=== PATIENT | female | born 1945 | race Caucasian/White ===

== ENCOUNTER 2017-04-16 09:45 | Inpatient (IN) | payer MEDICARE ==
[~2017-04-16] VITALS: Ht 160 cm; Wt 86.4 kg
[~2017-04-16 09:45] MED LIST: BUPR300T54 PO; DOCU100C40 PO; DULO-31 PO; FLUT16SP2 NS; GABA-338 PO; LORA0.5T PO; NOR5T PO; OMEP20TA5 PO; ONDA4TAB6 PO; POTA20TA84 PO; PREVCR VG; SYN0.0125T PO; TRIA1CAP6 PO
[2017-04-16] MEDS ORDERED: pantoprazole 40 MG vial IV ONE (10:45)
[2017-04-16] MEDS ORDERED: normal saline 1000ML IV soln IVB ONE (10:45)
[2017-04-16] MEDS ORDERED: normal saline 1000ml 1,000 ML IV ONE (10:45)
[2017-04-16] MEDS ORDERED: ondansetron/PF 4mg/2ml inj IV ONE (10:45)
[2017-04-16 11:21] LABS: BASOPHILS % (AUTO) 0.1 % (0-1); EOSINOPHILS % (AUTO) 0.3 % (0-6); HEMATOCRIT 41.5 % (35.0-45.0); HEMOGLOBIN 14.4 g/dl (12.0-16.0); LYMPHOCYTES # (AUTO) 0.9 X10'3 (1.1-4.8); LYMPHOCYTES % (AUTO) 6.8 % (21-51); MEAN CORPUSCULAR HEMOGLOBIN 31.2 PG (27.0-31.0); MEAN CORPUSCULAR HGB CONC 34.8 % (33.0-36.5); MEAN CORPUSCULAR VOLUME 89.7 FL (78-98); MEAN PLATELET VOLUME 9.8 FL (7.4-10.4); MONOCYTES # (AUTO) 0.4 X10'3 (0-0.9); MONOCYTES % (AUTO) 2.9 % (2-12); NEUTROPHILS % (AUTO) 89.9 % (42-75); PLATELET COUNT 174 X10'3 (140-440); RED BLOOD COUNT 4.62 X10'6 (4.20-5.60); RED CELL DISTRIBUTION WIDTH 13.8 % (11.5-14.5); WHITE BLOOD COUNT 13.4 X10'3 (4.5-11.0)
[2017-04-16 11:31] LABS: INR 0.9 INR; PARTIAL THROMBOPLASTIN TIME 26 SECONDS (22-32); PROTHROMBIN TIME 9.7 SECONDS (9.0-12.0)
[2017-04-16 11:35] LABS: ALANINE AMINOTRANSFERASE 32 U/L (12-78); ALBUMIN 3.7 G/DL (3.4-5.0); ALBUMIN/GLOBULIN RATIO 1.1 (1.1-1.5); ALKALINE PHOSPHATASE 84 IU/L (46-116); ANION GAP 9 (8-16); ASPARTATE AMINO TRANSFERASE 26 U/L (10-37); BILIRUBIN,TOTAL 0.3 MG/DL (0.1-1.0); BLOOD UREA NITROGEN 31 MG/DL (7-18); CALCIUM 9.2 MG/DL (8.5-10.1); CHLORIDE 97 MMOL/L (99-107); CREATININE 1.35 MG/DL (0.40-0.90); ETHANOL < 0.010 GM/DL (0.0-0.010); GLUCOSE 106 MG/DL (70-104); LIPASE 65 U/L (73-393); MAGNESIUM 2.1 MG/DL (1.5-2.4); SODIUM 135 MMOL/L (135-145); TOTAL CARBON DIOXIDE 29.1 MMOL/L (24-32); eGFR 39 ML/MIN
[2017-04-16] MEDS ORDERED: magnesium 2GM in 50ml NS 50 ML IV PRN (12:40)
[2017-04-16] MEDS ORDERED: magnesium 4gm in 100ml NS 100 ML IV PRN (12:40)
[2017-04-16] MEDS ORDERED: bisacodyl 10mg suppository rectal RC PRN (12:40)
[2017-04-16] MEDS ORDERED: magnesium hydroxide 30ml (MOM) UD suspension PO PRN (12:40)
[2017-04-16] MEDS ORDERED: acetaminophen 325mg tablet PO PRN (12:40)
[2017-04-16] MEDS ORDERED: HYDROmorphone inj. 0.5 MG/0.5 ML DISP.SYRIN IV PRN ×2 (12:40)
[2017-04-16] MEDS ORDERED: mag hydrox/Alum hydrox/simeth 30ml oral suspension PO PRN (12:40)
[2017-04-16] MEDS ORDERED: HYDROcodone/acetaminophen 10/325mg tab PO PRN (12:40)
[2017-04-16] MEDS ORDERED: magnesium Cl slow-release 64mg tablet PO PRN (12:40)
[2017-04-16] MEDS ORDERED: potassium Cl 20 mEq SR tablet PO PRN (12:40)
[2017-04-16] MEDS ORDERED: HYDROcodone/acetaminophen 5mg/325mg tablet PO PRN (12:40)
[2017-04-16] MEDS ORDERED: potassium Cl 40MEQ/NS 500ml 500 ML IV PRN ×2 (12:40)
[2017-04-16] MEDS ORDERED: hydrALAZINE 20mg/ml inj. IV PRN (12:50)
[2017-04-16] MEDS: potassium Cl 20 mEq SR tablet PO SCH ×2 (13:00→20:56)
[2017-04-16] MEDS: gabapentin 300mg capsule PO SCH ×2 (13:00→20:55)
[2017-04-16 13:12] LABS: CLARITY,URINE Clear (Clear); COLOR,URINE Yellow (Yellow); GLUCOSE, URINE Negative (Neg); KETONES,URINE Negative (Neg); LEUKOCYTE ESTERASE ,URINE Negative (Neg); NITRITES, URINE Negative (Neg); OCCULT BLOOD,URINE Negative (Neg); PROTEIN,URINE Negative (Neg); UROBILINOGEN,URINE 0.2 E.U/dL (0.2-1.0)
[2017-04-16 13:17] LABS: UA COLLECTION TYPE NON-SPECIFIED
[2017-04-16] MEDS: sodium chloride 0.45% 1,000 ML IV SCH ×2 (13:24→20:56)
[2017-04-16] MEDS: metroNIDAZOLE-Flagyl 500mg/NS 100 ML IV SCH ×3 (13:33→17:36)
[2017-04-16 14:24] LABS: OCCULT BLOOD STOOL POSITIVE (Neg)
[2017-04-16] MEDS ORDERED: HYDROmorphone/NS 1 mg/ml CADD 50 ML IV SCH (14:45)
[2017-04-16] MEDS ORDERED: CADD PCA waste documentation MC SCH (14:50)
[2017-04-16] MEDS ORDERED: naloxone 0.4 mg/ml inj IV PRN (14:50)
[2017-04-16 15:03] LABS: BASOPHILS % (AUTO) 0.1 % (0-1); EOSINOPHILS # (AUTO) 0.2 X10'3 (0-0.9); EOSINOPHILS % (AUTO) 1.6 % (0-6); HEMATOCRIT 37.7 % (35.0-45.0); HEMOGLOBIN 13.1 g/dl (12.0-16.0); LYMPHOCYTES # (AUTO) 1.2 X10'3 (1.1-4.8); LYMPHOCYTES % (AUTO) 8.6 % (21-51); MEAN CORPUSCULAR HEMOGLOBIN 31.2 PG (27.0-31.0); MEAN CORPUSCULAR HGB CONC 34.8 % (33.0-36.5); MEAN CORPUSCULAR VOLUME 89.5 FL (78-98); MEAN PLATELET VOLUME 9.9 FL (7.4-10.4); MONOCYTES # (AUTO) 0.6 X10'3 (0-0.9); NEUTROPHILS # (AUTO) 11.7 X10'3 (1.8-7.7); NEUTROPHILS % (AUTO) 85.7 % (42-75); PLATELET COUNT 179 X10'3 (140-440); RED BLOOD COUNT 4.21 X10'6 (4.20-5.60); RED CELL DISTRIBUTION WIDTH 14.1 % (11.5-14.5); WHITE BLOOD COUNT 13.7 X10'3 (4.5-11.0)
[2017-04-16] MEDS: aztreonam inj. 1,000 MG in normal saline 100ml IV soln 100 ML IV SCH ×2 (15:15→20:56)
[2017-04-16] MEDS: HYDROmorphone/NS 1 mg/ml CADD 50 ML IV SCH ×4 (16:00→21:00)
[2017-04-16] MEDS: pantoprazole 40MG/NS 100ML BAG 100 ML IV SCH ×2 (17:24→20:56)
[2017-04-16 20:00] VITALS: BP 143/77
[2017-04-16 20:55] VITALS: BP_SYST 136; BP_SYST 142; BP_SYST 143; BP_DIAS 68; BP_DIAS 77; BP_DIAS 78
[2017-04-16] MEDS ORDERED: HYDROmorphone 2mg tablet PO PRN (21:55)
[2017-04-16 22:08] LABS: BASOPHILS % (AUTO) 0.1 % (0-1); EOSINOPHILS # (AUTO) 0.1 X10'3 (0-0.9); EOSINOPHILS % (AUTO) 0.7 % (0-6); HEMATOCRIT 38.5 % (35.0-45.0); HEMOGLOBIN 13.2 g/dl (12.0-16.0); LYMPHOCYTES # (AUTO) 1.2 X10'3 (1.1-4.8); LYMPHOCYTES % (AUTO) 9.9 % (21-51); MEAN CORPUSCULAR HEMOGLOBIN 31.1 PG (27.0-31.0); MEAN CORPUSCULAR HGB CONC 34.3 % (33.0-36.5); MEAN CORPUSCULAR VOLUME 90.9 FL (78-98); MEAN PLATELET VOLUME 10.3 FL (7.4-10.4); MONOCYTES # (AUTO) 0.5 X10'3 (0-0.9); MONOCYTES % (AUTO) 4.2 % (2-12); NEUTROPHILS # (AUTO) 10.6 X10'3 (1.8-7.7); NEUTROPHILS % (AUTO) 85.1 % (42-75); PLATELET COUNT 171 X10'3 (140-440); RED BLOOD COUNT 4.23 X10'6 (4.20-5.60); RED CELL DISTRIBUTION WIDTH 14.2 % (11.5-14.5); WHITE BLOOD COUNT 12.5 X10'3 (4.5-11.0)
[2017-04-16] MEDS: HYDROmorphone 2mg tablet PO PRN (22:09)
[2017-04-16] MEDS: LORazepam 0.5 MG tablet PO PRN (23:35)
[2017-04-17] VITALS: BP 142/73
[2017-04-17] MEDS: metroNIDAZOLE-Flagyl 500mg/NS 100 ML IV SCH ×4 (01:15→23:58)
[2017-04-17] MEDS: pantoprazole 40MG/NS 100ML BAG 100 ML IV SCH ×5 (01:15→19:31)
[2017-04-17] MEDS: aztreonam inj. 1,000 MG in normal saline 100ml IV soln 100 ML IV SCH ×3 (01:15→19:31)
[2017-04-17] MEDS: HYDROmorphone 2mg tablet PO PRN ×2 (01:55→05:46)
[2017-04-17] MEDS: ondansetron/PF 4mg/2ml inj IV PRN ×2 (04:41→15:45)
[2017-04-17] MEDS: morphine 2 MG/ML inj. syringe IV PRN (05:39)
[2017-04-17 06:00] LABS: BASOPHILS % (AUTO) 0 % (0-1); EOSINOPHILS # (AUTO) 0.2 X10'3 (0-0.9); EOSINOPHILS % (AUTO) 1.3 % (0-6); HEMATOCRIT 38.9 % (35.0-45.0); HEMOGLOBIN 13.4 g/dl (12.0-16.0); LYMPHOCYTES # (AUTO) 0.7 X10'3 (1.1-4.8); LYMPHOCYTES % (AUTO) 5.4 % (21-51); MEAN CORPUSCULAR HEMOGLOBIN 30.9 PG (27.0-31.0); MEAN CORPUSCULAR HGB CONC 34.5 % (33.0-36.5); MEAN CORPUSCULAR VOLUME 89.5 FL (78-98); MEAN PLATELET VOLUME 10.1 FL (7.4-10.4); MONOCYTES # (AUTO) 0.4 X10'3 (0-0.9); MONOCYTES % (AUTO) 3.3 % (2-12); NEUTROPHILS # (AUTO) 11.6 X10'3 (1.8-7.7); PLATELET COUNT 157 X10'3 (140-440); RED BLOOD COUNT 4.35 X10'6 (4.20-5.60); RED CELL DISTRIBUTION WIDTH 14.3 % (11.5-14.5); WHITE BLOOD COUNT 12.9 X10'3 (4.5-11.0)
[2017-04-17 06:25] LABS: CHLORIDE 100 MMOL/L (99-107); GLUCOSE 135 MG/DL (70-104); POTASSIUM 3.7 MMOL/L (3.5-5.1); SODIUM 137 MMOL/L (135-145); TOTAL CARBON DIOXIDE 24.9 MMOL/L (24-32)
[2017-04-17 06:26] LABS: ALANINE AMINOTRANSFERASE 28 U/L (12-78); ALBUMIN 3.4 G/DL (3.4-5.0); ALKALINE PHOSPHATASE 70 IU/L (46-116); ANION GAP 12 (8-16); ASPARTATE AMINO TRANSFERASE 21 U/L (10-37); BILIRUBIN,TOTAL 0.4 MG/DL (0.1-1.0); BLOOD UREA NITROGEN 22 MG/DL (7-18); BUN/CREATININE RATIO 20.2 (6.6-38.0); CALCIUM 8.6 MG/DL (8.5-10.1); CREATININE 1.09 MG/DL (0.40-0.90); MAGNESIUM 1.9 MG/DL (1.5-2.4); TOTAL PROTEIN 6.7 G/DL (6.4-8.2); eGFR 49 ML/MIN
[2017-04-17] MEDS: levoTHYROXINE 125mcg tablet PO SCH (07:44)
[2017-04-17] MEDS: amLODIPine 5mg tablet PO SCH (07:45)
[2017-04-17] MEDS: buPROPion SR 150mg tablet PO SCH ×2 (07:45→19:29)
[2017-04-17 08:00] VITALS: BP 198/112
[2017-04-17] MEDS: K and/or MAG REPLACEMENT MC SCH (08:00)
[2017-04-17] MEDS ORDERED: duloxetine 30mg CAPSULE.DR PO SCH (08:00)
[2017-04-17] MEDS: estrogens, conjug. vaginal cream 45gm tube VG SCH (08:00)
[2017-04-17] MEDS: gabapentin 300mg capsule PO SCH ×3 (08:00→21:00)
[2017-04-17] MEDS: fluticasone nasal spray 16GM bottle NS SCH (08:00)
[2017-04-17] MEDS: triamterene/HCTZ 37.5/25mg tablet PO SCH (08:00)
[2017-04-17] MEDS: potassium Cl 20 mEq SR tablet PO SCH ×3 (08:00→21:01)
[2017-04-17] MEDS: HYDROcodone/acetaminophen 10/325mg tab PO PRN ×4 (10:58→22:07)
[2017-04-17 11:00] VITALS: BP 185/98
[2017-04-17 11:32] LABS: CLARITY,URINE CLEAR (Clear); COLOR,URINE STRAW (Yellow); GLUCOSE, URINE NEGATIVE (Neg); KETONES,URINE TRACE mg/dl (Neg); LEUKOCYTE ESTERASE ,URINE NEGATIVE (Neg); NITRITES, URINE NEGATIVE (Neg); OCCULT BLOOD,URINE TRACE-INTACT (Neg); PH,URINE 7.5 (4.8-8.0); PROTEIN,URINE 30 mg/dl (Neg); UROBILINOGEN,URINE 0.2 E.U/dL (0.2-1.0)
[2017-04-17 11:33] LABS: UA COLLECTION TYPE STRAIGHT CATH
[2017-04-17 11:40] LABS: BACTERIA,URINE NONE SEEN /HPF (Neg); RBC,URINE 0-2 /HPF (0-2); SQUAMOUS EPITHELIAL CELL,UR NONE SEEN /LPF (FEW); WBC,URINE NONE SEEN /HPF (0-4)
[2017-04-17] MEDS: LORazepam 0.5 MG tablet PO PRN (12:47)
[2017-04-17] MEDS: sodium chloride 0.45% 1,000 ML IV SCH (17:49)
[2017-04-17] MEDS: lactobacillus rhamnosus 10,000 MMU CELLS/CAPSULE PO SCH (17:55)
[2017-04-17 18:00] VITALS: BP 156/80
[2017-04-17] MEDS: carvedilol 6.25mg tablet PO SCH (19:29)
[2017-04-18] VITALS: BP 149/79
[2017-04-18] MEDS: aztreonam inj. 1,000 MG in normal saline 100ml IV soln 100 ML IV SCH ×4 (01:23→23:36)
[2017-04-18] MEDS: pantoprazole 40MG/NS 100ML BAG 100 ML IV SCH ×3 (01:23→11:00)
[2017-04-18] MEDS: HYDROcodone/acetaminophen 10/325mg tab PO PRN ×4 (04:06→17:54)
[2017-04-18] MEDS: ondansetron/PF 4mg/2ml inj IV PRN (04:53)
[2017-04-18] MEDS: morphine 2 MG/ML inj. syringe IV PRN (04:53)
[2017-04-18 05:26] LABS: BASOPHILS % (AUTO) 0.1 % (0-1); EOSINOPHILS # (AUTO) 0.2 X10'3 (0-0.9); EOSINOPHILS % (AUTO) 1.2 % (0-6); HEMATOCRIT 38.7 % (35.0-45.0); HEMOGLOBIN 13.4 g/dl (12.0-16.0); LYMPHOCYTES # (AUTO) 0.9 X10'3 (1.1-4.8); LYMPHOCYTES % (AUTO) 7.8 % (21-51); MEAN CORPUSCULAR HEMOGLOBIN 31.2 PG (27.0-31.0); MEAN CORPUSCULAR HGB CONC 34.7 % (33.0-36.5); MEAN CORPUSCULAR VOLUME 89.8 FL (78-98); MONOCYTES # (AUTO) 0.5 X10'3 (0-0.9); MONOCYTES % (AUTO) 4.3 % (2-12); NEUTROPHILS # (AUTO) 10.5 X10'3 (1.8-7.7); NEUTROPHILS % (AUTO) 86.6 % (42-75); PLATELET COUNT 163 X10'3 (140-440); RED BLOOD COUNT 4.31 X10'6 (4.20-5.60); RED CELL DISTRIBUTION WIDTH 13.8 % (11.5-14.5); WHITE BLOOD COUNT 12.1 X10'3 (4.5-11.0)
[2017-04-18 06:22] LABS: ALANINE AMINOTRANSFERASE 21 U/L (12-78); ALBUMIN 3.2 G/DL (3.4-5.0); ALBUMIN/GLOBULIN RATIO 0.9 (1.1-1.5); ALKALINE PHOSPHATASE 66 IU/L (46-116); ANION GAP 11 (8-16); ASPARTATE AMINO TRANSFERASE 25 U/L (10-37); BILIRUBIN,TOTAL 0.5 MG/DL (0.1-1.0); BLOOD UREA NITROGEN 15 MG/DL (7-18); CALCIUM 8.8 MG/DL (8.5-10.1); CHLORIDE 94 MMOL/L (99-107); CREATININE 0.94 MG/DL (0.40-0.90); GLUCOSE 112 MG/DL (70-104); MAGNESIUM 1.5 MG/DL (1.5-2.4); SODIUM 131 MMOL/L (135-145); TOTAL CARBON DIOXIDE 26.2 MMOL/L (24-32); TOTAL PROTEIN 6.6 G/DL (6.4-8.2); eGFR 59 ML/MIN
[2017-04-18 08:00] VITALS: BP 147/87
[2017-04-18] MEDS: amLODIPine 5mg tablet PO SCH (08:00)
[2017-04-18] MEDS: K and/or MAG REPLACEMENT MC SCH (08:00)
[2017-04-18] MEDS: triamterene/HCTZ 37.5/25mg tablet PO SCH (08:00)
[2017-04-18] MEDS: carvedilol 6.25mg tablet PO SCH ×2 (08:00→20:24)
[2017-04-18] MEDS: levoTHYROXINE 125mcg tablet PO SCH (08:15)
[2017-04-18] MEDS: lactobacillus rhamnosus 10,000 MMU CELLS/CAPSULE PO SCH ×2 (08:15→17:55)
[2017-04-18] MEDS: potassium Cl 20 mEq SR tablet PO PRN ×3 (08:17→20:24)
[2017-04-18] MEDS: gabapentin 300mg capsule PO SCH ×3 (08:41→20:24)
[2017-04-18] MEDS: fluticasone nasal spray 16GM bottle NS SCH (08:41)
[2017-04-18] MEDS: buPROPion SR 150mg tablet PO SCH ×2 (08:42→20:24)
[2017-04-18] MEDS: metroNIDAZOLE-Flagyl 500mg/NS 100 ML IV SCH ×2 (10:08→16:55)
[2017-04-18] MEDS: sodium chloride 0.45% 1,000 ML IV SCH (10:08)
[2017-04-18] MEDS ORDERED: potassium chloride 10mEq ER tablet PO SCH (10:24)
[2017-04-18 11:00] VITALS: BP 154/79
[2017-04-18] MEDS: HYDROchlorothiazide 12.5mg capsule PO SCH (13:40)
[2017-04-18] MEDS: lisinopril 10 MG tablet PO SCH (13:41)
[2017-04-18] MEDS ORDERED: magnesium 2GM in 50ml NS 50 ML IV ONE (13:55)
[2017-04-18 16:32] VITALS: BP_SYST 134; BP_SYST 141; BP_SYST 145; BP_DIAS 67; BP_DIAS 78; BP_DIAS 89
[2017-04-18] MEDS ORDERED: magnesium citrate 296ml oral solution PO STA (19:25)
[2017-04-18 20:00] VITALS: BP_SYST 104; BP_SYST 121; BP_DIAS 59; BP_DIAS 64
[2017-04-18] MEDS: duloxetine 30mg CAPSULE.DR PO SCH ×2 (20:23→20:33)
[2017-04-19] VITALS (13 sets, daily range): BP systolic 94–150; BP diastolic 49–90
[2017-04-19] MEDS: metroNIDAZOLE-Flagyl 500mg/NS 100 ML IV SCH ×3 (00:42→17:33)
[2017-04-19 03:30] LABS: BASOPHILS % (AUTO) 0.3 % (0-1); EOSINOPHILS % (AUTO) 0.1 % (0-6); HEMATOCRIT 43.6 % (35.0-45.0); LYMPHOCYTES # (AUTO) 0.8 X10'3 (1.1-4.8); LYMPHOCYTES % (AUTO) 7.2 % (21-51); MEAN CORPUSCULAR HEMOGLOBIN 31.1 PG (27.0-31.0); MEAN CORPUSCULAR HGB CONC 34.4 % (33.0-36.5); MEAN CORPUSCULAR VOLUME 90.4 FL (78-98); MEAN PLATELET VOLUME 9.9 FL (7.4-10.4); MONOCYTES # (AUTO) 0.4 X10'3 (0-0.9); MONOCYTES % (AUTO) 3.5 % (2-12); NEUTROPHILS # (AUTO) 9.8 X10'3 (1.8-7.7); NEUTROPHILS % (AUTO) 88.9 % (42-75); PLATELET COUNT 150 X10'3 (140-440); RED BLOOD COUNT 4.82 X10'6 (4.20-5.60); RED CELL DISTRIBUTION WIDTH 13.8 % (11.5-14.5); WHITE BLOOD COUNT 11.1 X10'3 (4.5-11.0)
[2017-04-19 03:46] LABS: ALANINE AMINOTRANSFERASE 58 U/L (12-78); ALBUMIN 3.8 G/DL (3.4-5.0); ALKALINE PHOSPHATASE 76 IU/L (46-116); ANION GAP 7 (8-16); ASPARTATE AMINO TRANSFERASE 67 U/L (10-37); BILIRUBIN,TOTAL 0.5 MG/DL (0.1-1.0); BLOOD UREA NITROGEN 19 MG/DL (7-18); BUN/CREATININE RATIO 17.1 (6.6-38.0); CALCIUM 9.2 MG/DL (8.5-10.1); CHLORIDE 94 MMOL/L (99-107); CREATININE 1.11 MG/DL (0.40-0.90); GLUCOSE 107 MG/DL (70-104); MAGNESIUM 2.7 MG/DL (1.5-2.4); POTASSIUM 4.9 MMOL/L (3.5-5.1); SODIUM 131 MMOL/L (135-145); TOTAL CARBON DIOXIDE 29.8 MMOL/L (24-32); TOTAL PROTEIN 7.7 G/DL (6.4-8.2); eGFR 48 ML/MIN
[2017-04-19] MEDS: sodium chloride 0.45% 1,000 ML IV SCH ×3 (04:07→17:39)
[2017-04-19] MEDS ORDERED: magnesium citrate 296ml oral solution PO ONE (05:00)
[2017-04-19] MEDS: HYDROcodone/acetaminophen 10/325mg tab PO PRN ×2 (05:05→20:54)
[2017-04-19] MEDS: pantoprazole 40mg Tablet.DR PO SCH (07:49)
[2017-04-19] MEDS: levoTHYROXINE 125mcg tablet PO SCH (07:49)
[2017-04-19] MEDS: lactobacillus rhamnosus 10,000 MMU CELLS/CAPSULE PO SCH ×2 (07:49→17:33)
[2017-04-19] MEDS: carvedilol 6.25mg tablet PO SCH ×2 (07:50→20:54)
[2017-04-19] MEDS: aztreonam inj. 1,000 MG in normal saline 100ml IV soln 100 ML IV SCH ×2 (07:50→16:23)
[2017-04-19] MEDS: fluticasone nasal spray 16GM bottle NS SCH (07:50)
[2017-04-19] MEDS: buPROPion SR 150mg tablet PO SCH ×2 (07:51→20:54)
[2017-04-19] MEDS: HYDROchlorothiazide 12.5mg capsule PO SCH (07:51)
[2017-04-19] MEDS: gabapentin 300mg capsule PO SCH ×3 (07:51→20:54)
[2017-04-19] MEDS: lisinopril 10 MG tablet PO SCH (07:51)
[2017-04-19] MEDS: K and/or MAG REPLACEMENT MC SCH (07:53)
[2017-04-19] MEDS ORDERED: fentaNYL/PF 50MCG/1 ML 2ML syringe ONE (10:43)
[2017-04-19] MEDS ORDERED: MIDAZolam 5mg/ml 2ml vial ONE (10:43)
[2017-04-19] MEDS ORDERED: simethicone 40mg/0.6ml oral drops 30ml MC ONE (12:55)
[2017-04-19] MEDS ORDERED: MIDAZolam 5mg/ml 2ml vial IV PRN (12:55)
[2017-04-19] MEDS ORDERED: normal saline 1000ml 1,000 ML IV SCH (12:55)
[2017-04-19] MEDS ORDERED: fentaNYL/PF 50MCG/1 ML 2ML syringe IV PRN (12:55)
[2017-04-19] MEDS: dicyclomine 10 MG capsule PO SCH (20:55)
[2017-04-19] MEDS: duloxetine 30mg CAPSULE.DR PO SCH (20:55)
[2017-04-20] VITALS: BP 135/65
[2017-04-20] MEDS: aztreonam inj. 1,000 MG in normal saline 100ml IV soln 100 ML IV SCH ×3 (00:31→16:00)
[2017-04-20] MEDS: metroNIDAZOLE-Flagyl 500mg/NS 100 ML IV SCH ×2 (01:36→07:23)
[2017-04-20] MEDS: HYDROcodone/acetaminophen 10/325mg tab PO PRN (04:23)
[2017-04-20] MEDS: lactobacillus rhamnosus 10,000 MMU CELLS/CAPSULE PO SCH (07:23)
[2017-04-20] MEDS: fluticasone nasal spray 16GM bottle NS SCH (07:23)
[2017-04-20] MEDS: pantoprazole 40mg Tablet.DR PO SCH (07:23)
[2017-04-20] MEDS: levoTHYROXINE 125mcg tablet PO SCH (07:23)
[2017-04-20] MEDS: carvedilol 6.25mg tablet PO SCH (07:24)
[2017-04-20] MEDS: dicyclomine 10 MG capsule PO SCH ×2 (07:24→12:40)
[2017-04-20] MEDS: HYDROchlorothiazide 12.5mg capsule PO SCH (07:24)
[2017-04-20] MEDS: lisinopril 10 MG tablet PO SCH (07:25)
[2017-04-20] MEDS: buPROPion SR 150mg tablet PO SCH (07:26)
[2017-04-20] MEDS: gabapentin 300mg capsule PO SCH ×2 (07:26→12:40)
[2017-04-20] MEDS: estrogens, conjug. vaginal cream 45gm tube VG SCH (07:27)
[2017-04-20] MEDS: K and/or MAG REPLACEMENT MC SCH (08:00)
[2017-04-20 08:01] LABS: BASOPHILS % (AUTO) 0.1 % (0-1); EOSINOPHILS # (AUTO) 0.1 X10'3 (0-0.9); EOSINOPHILS % (AUTO) 1.9 % (0-6); HEMATOCRIT 37.8 % (35.0-45.0); HEMOGLOBIN 12.8 g/dl (12.0-16.0); LYMPHOCYTES # (AUTO) 0.7 X10'3 (1.1-4.8); LYMPHOCYTES % (AUTO) 13.3 % (21-51); MEAN CORPUSCULAR HEMOGLOBIN 31.1 PG (27.0-31.0); MEAN CORPUSCULAR HGB CONC 33.9 % (33.0-36.5); MEAN CORPUSCULAR VOLUME 91.7 FL (78-98); MEAN PLATELET VOLUME 9.7 FL (7.4-10.4); MONOCYTES # (AUTO) 0.5 X10'3 (0-0.9); MONOCYTES % (AUTO) 8.9 % (2-12); NEUTROPHILS # (AUTO) 4.1 X10'3 (1.8-7.7); NEUTROPHILS % (AUTO) 75.8 % (42-75); PLATELET COUNT 154 X10'3 (140-440); RED BLOOD COUNT 4.12 X10'6 (4.20-5.60); RED CELL DISTRIBUTION WIDTH 13.9 % (11.5-14.5); WHITE BLOOD COUNT 5.4 X10'3 (4.5-11.0)
[2017-04-20 08:05] VITALS: BP 150/97
[2017-04-20 08:30] LABS: ALANINE AMINOTRANSFERASE 47 U/L (12-78); ALBUMIN 3.1 G/DL (3.4-5.0); ALKALINE PHOSPHATASE 63 IU/L (46-116); ANION GAP 7 (8-16); ASPARTATE AMINO TRANSFERASE 43 U/L (10-37); BILIRUBIN,TOTAL 0.3 MG/DL (0.1-1.0); BLOOD UREA NITROGEN 24 MG/DL (7-18); BUN/CREATININE RATIO 20.3 (6.6-38.0); CALCIUM 8.3 MG/DL (8.5-10.1); CHLORIDE 100 MMOL/L (99-107); CREATININE 1.18 MG/DL (0.40-0.90); GLUCOSE 94 MG/DL (70-104); MAGNESIUM 2.2 MG/DL (1.5-2.4); POTASSIUM 3.7 MMOL/L (3.5-5.1); SODIUM 136 MMOL/L (135-145); TOTAL CARBON DIOXIDE 29.4 MMOL/L (24-32); TOTAL PROTEIN 6.2 G/DL (6.4-8.2); eGFR 45 ML/MIN
[2017-04-20 11:00] VITALS: BP 137/66
[2017-04-20 11:31] VITALS: BP_SYST 117; BP_SYST 121; BP_SYST 137; BP_DIAS 63; BP_DIAS 66
[2017-04-20] MEDS ORDERED: metroNIDAZOLE 500mg tablet PO SCH (16:00)
[2017-04-20] MEDS ORDERED: AMOX-422 PO (16:09)
[2017-04-20] MEDS ORDERED: CARV6.253 PO (16:09)
[2017-04-20] MEDS ORDERED: LISI10TA4 PO (16:09)
[2017-04-20] MEDS ORDERED: METR500T4 PO (16:09)
[2017-04-20] MEDS: sodium chloride 0.45% 1,000 ML IV SCH (16:43)
== END 2017-04-20 17:01 | disposition home or self-care (01) | DRG 378 ==
LOC: ER 09:45 → ED HOLD 11:55 → SUR 3N 18:37
PROVIDERS: ADMIT Internal Medicine; ATTEND Family Medicine
PROC: 0DBL8ZX Excision of Transverse Colon, Via Natural or Artificial Opening Endoscopic, Diagnostic (ICD-10-PCS; principal; 2017-04-19)
DX: K92.1 Melena (principal); K55.9 Vascular disorder of intestine, unspecified; E11.22 Type 2 diabetes mellitus with diabetic chronic kidney disease; E87.1 Hypo-osmolality and hyponatremia; J44.9 Chronic obstructive pulmonary disease, unspecified; E86.0 Dehydration; E03.9 Hypothyroidism, unspecified; E87.6 Hypokalemia; M54.9 Dorsalgia, unspecified; F32.9 Major depressive disorder, single episode, unspecified; R93.3 Abnormal findings on diagnostic imaging of other parts of digestive tract; G89.4 Chronic pain syndrome; I12.9 Hypertensive chronic kidney disease with stage 1 through stage 4 chronic kidney disease, or unspecified chronic kidney disease; I25.10 Atherosclerotic heart disease of native coronary artery without angina pectoris; K21.9 Gastro-esophageal reflux disease without esophagitis; N18.9 Chronic kidney disease, unspecified; Z90.49 Acquired absence of other specified parts of digestive tract; Z90.710 Acquired absence of both cervix and uterus; Z88.1 Allergy status to other antibiotic agents; Z88.2 Allergy status to sulfonamides; Z88.8 Allergy status to other drugs, medicaments and biological substances; Z79.899 Other long term (current) drug therapy; Z86.73 Personal history of transient ischemic attack (TIA), and cerebral infarction without residual deficits
CPT/HCPCS: 36415; 45380; 71045; 74176; 80053; 80320; 81001; 81003; 82272; 83605; 83690; 83735; 84443; 85025; 85610; 85730; 86885; 86900; 86901; 87040; 87045; 87046; 87070; 87324; 87449; 88305; 89055; 93005; 96361; 96374; 96375; 97110; 97116; 99285; A4315; A4353; A4620; A6258; C9113; G0500; J0360; J1170; J2250; J2270; J2405; J3010; J3475; J3490; J7030

== ENCOUNTER 2017-11-27 16:10 | Emergency (ER) | payer MEDICARE ==
[~2017-11-27] VITALS: Ht 160 cm; Wt 89.2 kg
[~2017-11-27 16:10] MED LIST changes: +CARV6.253 PO; +LISI10TA4 PO; +METR500T4 PO
[2017-11-27 16:16] VITALS: BP 141/79
[2017-11-27] MEDS ORDERED: ORPH100T2 PO (16:46)
== END 2017-11-27 16:53 | disposition home or self-care (01) ==
LOC: ER 16:10
DX: G89.29 Other chronic pain (principal); M54.5 Low back pain; I10 Essential (primary) hypertension; E03.9 Hypothyroidism, unspecified; Z90.49 Acquired absence of other specified parts of digestive tract; Z90.710 Acquired absence of both cervix and uterus; Z88.1 Allergy status to other antibiotic agents; Z88.2 Allergy status to sulfonamides; Z79.899 Other long term (current) drug therapy; Z56.0 Unemployment, unspecified
CPT/HCPCS: 99283

== ENCOUNTER 2017-12-04 18:20 | Emergency (ER) | payer MEDICARE ==
[~2017-12-04] VITALS: Ht 160 cm; Wt 86.4 kg
[~2017-12-04 18:20] MED LIST changes: +ORPH100T2 PO
[2017-12-04] MEDS ORDERED: fentaNYL/PF 50MCG/1 ML 2ML syringe IV ONE ×2 (19:00→20:20)
[2017-12-04] MEDS ORDERED: ondansetron/PF 4mg/2ml inj IV ONE (19:00)
[2017-12-04] MEDS ORDERED: normal saline 1000ML IV soln IVB ONE (19:00)
[2017-12-04 19:33] LABS: BASOPHILS % (AUTO) 0.2 % (0-1); EOSINOPHILS % (AUTO) 0.1 % (0-6); HEMATOCRIT 46.9 % (35.0-45.0); LYMPHOCYTES # (AUTO) 1.1 X10'3 (1.1-4.8); LYMPHOCYTES % (AUTO) 15.1 % (21-51); MEAN CORPUSCULAR HEMOGLOBIN 30.7 PG (27.0-31.0); MEAN CORPUSCULAR VOLUME 90.1 FL (78-98); MEAN PLATELET VOLUME 10.1 FL (7.4-10.4); MONOCYTES # (AUTO) 0.4 X10'3 (0-0.9); MONOCYTES % (AUTO) 4.8 % (2-12); NEUTROPHILS # (AUTO) 5.8 X10'3 (1.8-7.7); NEUTROPHILS % (AUTO) 79.8 % (42-75); PLATELET COUNT 206 X10'3 (140-440); RED BLOOD COUNT 5.21 X10'6 (4.20-5.60); RED CELL DISTRIBUTION WIDTH 12.6 % (11.5-14.5); WHITE BLOOD COUNT 7.3 X10'3 (4.5-11.0)
[2017-12-04 19:42] LABS: PARTIAL THROMBOPLASTIN TIME 27 SECONDS (22-32)
[2017-12-04 19:57] LABS: ALANINE AMINOTRANSFERASE 33 U/L (12-78); ALBUMIN 4.1 G/DL (3.4-5.0); ALKALINE PHOSPHATASE 82 IU/L (46-116); ANION GAP 12 (8-16); ASPARTATE AMINO TRANSFERASE 47 U/L (10-37); BILIRUBIN,TOTAL 0.4 MG/DL (0.1-1.0); BLOOD UREA NITROGEN 18 MG/DL (7-18); BUN/CREATININE RATIO 15.8 (6.6-38.0); CALCIUM 9.8 MG/DL (8.5-10.1); CHLORIDE 93 MMOL/L (99-107); CREATININE 1.14 MG/DL (0.40-0.90); GLUCOSE 120 MG/DL (70-104); MAGNESIUM 1.7 MG/DL (1.5-2.4); POTASSIUM 3.1 MMOL/L (3.5-5.1); SODIUM 132 MMOL/L (135-145); TOTAL CARBON DIOXIDE 26.7 MMOL/L (24-32); TOTAL PROTEIN 8.2 G/DL (6.4-8.2); eGFR 47 ML/MIN
[2017-12-04 20:01] LABS: CLARITY,URINE CLEAR (Clear); COLOR,URINE YELLOW (Yellow); GLUCOSE, URINE NEGATIVE (Neg); KETONES,URINE 15 mg/dl (Neg); LEUKOCYTE ESTERASE ,URINE NEGATIVE (Neg); NITRITES, URINE NEGATIVE (Neg); OCCULT BLOOD,URINE SMALL (Neg); PROTEIN,URINE >=300 mg/dl (Neg); UROBILINOGEN,URINE 0.2 E.U/dL (0.2-1.0)
[2017-12-04 20:11] LABS: UA COLLECTION TYPE STRAIGHT CATH
[2017-12-04 20:12] LABS: BACTERIA,URINE FEW /HPF (Neg); RBC,URINE 0-2 /HPF (0-2); SQUAMOUS EPITHELIAL CELL,UR FEW /LPF (FEW); WBC,URINE NONE SEEN /HPF (0-4)
[2017-12-04] MEDS ORDERED: LORazepam 2 mg/ml vial IV ONE (20:20)
[2017-12-04] MEDS ORDERED: ONDA8TAB6 PO (20:47)
[2017-12-04 21:03] VITALS: BP 152/82
== END 2017-12-04 21:07 | disposition home or self-care (01) ==
LOC: ER 18:21
DX: M54.5 Low back pain (principal); R11.2 Nausea with vomiting, unspecified; R05 Cough; G89.29 Other chronic pain; E03.9 Hypothyroidism, unspecified; I10 Essential (primary) hypertension; Z90.49 Acquired absence of other specified parts of digestive tract; Z90.710 Acquired absence of both cervix and uterus; Z88.1 Allergy status to other antibiotic agents; Z88.2 Allergy status to sulfonamides; Z79.899 Other long term (current) drug therapy; Z56.0 Unemployment, unspecified; W13.8XXA Fall from, out of or through other building or structure, initial encounter; Y93.89 Activity, other specified; Y92.89 Other specified places as the place of occurrence of the external cause; Y99.8 Other external cause status
CPT/HCPCS: 36415; 71045; 72100; 80053; 81001; 83605; 83735; 84145; 85025; 85610; 85730; 87040; 93005; 96361; 96374; 96375; 96376; 99285; J2060; J2405; J3010; J7030

== ENCOUNTER 2019-04-02 13:22 | Emergency (ER) | payer MEDICARE ==
[~2019-04-02] VITALS: Ht 160 cm; Wt 77.3 kg
[~2019-04-02 13:22] MED LIST changes: +BUPR-353 PO; -BUPR300T54 PO; +METR-159 PO; -METR500T4 PO; +ONDA8TAB6 PO
[2019-04-02] MEDS ORDERED: PRED20TA PO (13:34)
[2019-04-02] MEDS ORDERED: dexamethasone 4mg tablet PO ONE (13:35)
[2019-04-02] MEDS ORDERED: famotidine 10mg tablet PO ONE (13:35)
[2019-04-02] MEDS ORDERED: famotidine 20mg tablet PO ONE (13:40)
[2019-04-02 14:10] VITALS: BP 146/79
== END 2019-04-02 14:20 | disposition home or self-care (01) ==
LOC: ER 13:22
DX: R22.0 Localized swelling, mass and lump, head (principal); T42.6X5A Adverse effect of other antiepileptic and sedative-hypnotic drugs, initial encounter; I10 Essential (primary) hypertension; F32.9 Major depressive disorder, single episode, unspecified; G89.29 Other chronic pain; E03.9 Hypothyroidism, unspecified; Z90.710 Acquired absence of both cervix and uterus; Z90.89 Acquired absence of other organs; Z56.0 Unemployment, unspecified; Z88.1 Allergy status to other antibiotic agents; Z88.2 Allergy status to sulfonamides; Z79.899 Other long term (current) drug therapy; Y92.89 Other specified places as the place of occurrence of the external cause
CPT/HCPCS: 99284

== ENCOUNTER 2021-05-17 16:15 | Emergency (ER) | payer MEDICARE ==
[~2021-05-17] VITALS: Ht 160 cm; Wt 86.4 kg
[~2021-05-17 16:15] MED LIST changes: +LISI10TA27 PO; -LISI10TA4 PO
[2021-05-17 17:36] LABS: BASOPHILS % (AUTO) 0.4 % (0-1); EOSINOPHILS # (AUTO) 0.1 X10'3 (0-0.9); HEMATOCRIT 39.4 % (35.0-45.0); HEMOGLOBIN 13.1 g/dl (12.0-16.0); LYMPHOCYTES # (AUTO) 1.7 X10'3 (1.1-4.8); MEAN CORPUSCULAR HGB CONC 33.2 g/dL (33.0-36.5); MEAN CORPUSCULAR VOLUME 87.4 FL (78-98); MEAN PLATELET VOLUME 10.5 FL (7.4-10.4); MONOCYTES # (AUTO) 0.5 X10'3 (0-0.9); MONOCYTES % (AUTO) 7.2 % (2-12); NEUTROPHILS # (AUTO) 3.9 X10'3 (1.8-7.7); NEUTROPHILS % (AUTO) 62.4 % (42-75); PLATELET COUNT 176 X10'3 (140-440); RED BLOOD COUNT 4.51 X10'6 (4.20-5.60); RED CELL DISTRIBUTION WIDTH 13.5 % (11.5-14.5); WHITE BLOOD COUNT 6.2 X10'3 (4.5-11.0)
[2021-05-17 17:51] LABS: ALANINE AMINOTRANSFERASE 31 U/L (12-78); ALBUMIN 3.7 G/DL (3.4-5.0); ALKALINE PHOSPHATASE 108 IU/L (46-116); ANION GAP 7 (8-16); ASPARTATE AMINO TRANSFERASE 33 U/L (10-37); BILIRUBIN,TOTAL 0.3 MG/DL (0.1-1.0); BLOOD UREA NITROGEN 23 MG/DL (7-18); BUN/CREATININE RATIO 19.5 (6.6-38.0); CALCIUM 8.6 MG/DL (8.5-10.1); CHLORIDE 105 MMOL/L (99-107); CREATININE 1.18 MG/DL (0.40-0.90); GLUCOSE 99 MG/DL (70-104); POTASSIUM 3.9 MMOL/L (3.5-5.1); SODIUM 142 MMOL/L (135-145); TOTAL CARBON DIOXIDE 29.6 MMOL/L (24-32); TOTAL PROTEIN 7.4 G/DL (6.4-8.2); eGFR 45 ML/MIN
[2021-05-17] MEDS ORDERED: furosemide 20MG tablet PO ONE (18:20)
[2021-05-17] MEDS ORDERED: FURO-150 PO (18:21)
[2021-05-17 18:31] VITALS: BP 116/94
== END 2021-05-17 18:43 | disposition home or self-care (01) ==
LOC: ER 16:15
DX: R60.0 Localized edema (principal); R06.02 Shortness of breath; R07.89 Other chest pain; I48.91 Unspecified atrial fibrillation; I11.0 Hypertensive heart disease with heart failure; I50.9 Heart failure, unspecified; I12.9 Hypertensive chronic kidney disease with stage 1 through stage 4 chronic kidney disease, or unspecified chronic kidney disease; N18.9 Chronic kidney disease, unspecified; E03.9 Hypothyroidism, unspecified; G89.29 Other chronic pain; Z90.49 Acquired absence of other specified parts of digestive tract; Z90.710 Acquired absence of both cervix and uterus; Z98.890 Other specified postprocedural states; Z56.0 Unemployment, unspecified; Z88.1 Allergy status to other antibiotic agents; Z88.2 Allergy status to sulfonamides; Z88.8 Allergy status to other drugs, medicaments and biological substances; Z79.899 Other long term (current) drug therapy
CPT/HCPCS: 36415; 71045; 80053; 83880; 84484; 85025; 93005; 99285

== ENCOUNTER 2022-04-16 15:31 | Outpatient (CLI) | payer MEDICARE ==
[~2022-04-16 15:31] MED LIST changes: +ALLO100T PO; +BUDE10.22 INH; +BUPR-114 PO; -BUPR-353 PO; +BUPR1FIL54 SL; +CALC600T82 PO; -CARV6.253 PO; +CHOL20004 PO; +COLC0.6T72 PO; -DOCU100C40 PO; -DULO-31 PO; +ESCI-8 PO; -GABA-338 PO; +GABA-534 PO; +HYDR-3973 PO; -LISI10TA27 PO; -LORA0.5T PO; -METR-159 PO; -NOR5T PO; -OMEP20TA5 PO; -ONDA4TAB6 PO; -ONDA8TAB6 PO; -ORPH100T2 PO; +POTA-206 PO; -POTA20TA84 PO; -PREVCR VG; +SUMA100T16 PO; -TRIA1CAP6 PO; +TRIA1TAB5 PO; +WARF-55 PO
== END 2022-04-16 23:59 | disposition home or self-care (01) ==
LOC: RAD 15:31
PROVIDERS: ATTEND Internal Medicine Gastroenterology
DX: R13.12 Dysphagia, oropharyngeal phase (principal); J18.9 Pneumonia, unspecified organism; K21.9 Gastro-esophageal reflux disease without esophagitis
CPT/HCPCS: 74230

== ENCOUNTER 2024-05-18 09:04 | Day surgery (SDC) | payer MEDICARE ==
[2024-05-17 14:46] LABS: BASOPHILS % (AUTO) 0.2 % (0-1); EOSINOPHILS # (AUTO) 0.1 X10'3 (0-0.9); EOSINOPHILS % (AUTO) 1.7 % (0-6); HEMATOCRIT 34.6 % (35.0-45.0); HEMOGLOBIN 11.2 g/dl (12.0-16.0); LYMPHOCYTES # (AUTO) 0.9 X10'3 (1.1-4.8); MEAN CORPUSCULAR HEMOGLOBIN 31.3 PG (27.0-31.0); MEAN CORPUSCULAR HGB CONC 32.4 g/dL (33.0-36.5); MEAN CORPUSCULAR VOLUME 96.6 FL (78-98); MEAN PLATELET VOLUME 10.8 FL (7.4-10.4); MONOCYTES # (AUTO) 0.4 X10'3 (0-0.9); MONOCYTES % (AUTO) 5.6 % (2-12); NEUTROPHILS # (AUTO) 6.2 X10'3 (1.8-7.7); NEUTROPHILS % (AUTO) 80.5 % (42-75); PLATELET COUNT 130 X10'3 (140-440); RED BLOOD COUNT 3.58 X10'6 (4.20-5.60); WHITE BLOOD COUNT 7.6 X10'3 (4.5-11.0)
[2024-05-17 14:57] LABS: APTT 29 SECONDS (22-32); INR 1.1 INR; PROTHROMBIN TIME 11.9 SECONDS (9.0-12.0)
[2024-05-17 15:02] LABS: ALBUMIN 3.1 G/DL (3.4-5.0); ANION GAP 5 (8-16); BLOOD UREA NITROGEN 22 MG/DL (7-18); BUN/CREATININE RATIO 18.2 (10.0-20.0); CALCIUM 8.7 MG/DL (8.5-10.1); CHLORIDE 105 MMOL/L (99-107); CREATININE 1.21 MG/DL (0.40-0.90); GLUCOSE 80 MG/DL (70-104); POTASSIUM 4.5 MMOL/L (3.5-5.1); SODIUM 140 MMOL/L (135-145); TOTAL CARBON DIOXIDE 29.9 MMOL/L (24-32); eGFR 43 ML/MIN
[~2024-05-18] VITALS: Ht 160 cm; Wt 92.1 kg
[2024-05-18] VITALS (11 sets, daily range): BP systolic 103–164; BP diastolic 52–88; PULSE 65–85; RESP 12–15; TEMP 98; O2SAT 93–98
[~2024-05-18 09:04] MED LIST changes: +CARV3.122 PO; +DAPA5TAB PO; -GABA-534 PO; +GABA-535 PO; +LISI10TA27 PO; +SACU1TAB PO; +SPIR25TA PO
[2024-05-18] MEDS ORDERED: ceFAZolin 2gm in dextrose, iso 50 ML IV ONE (09:35)
[2024-05-18] MEDS ORDERED: METH-348 PO (09:46)
[2024-05-18] MEDS ORDERED: ceFAZolin 1000mg inj ONE (10:24)
[2024-05-18] MEDS ORDERED: LIDOcaine 1% w/EPI 1:100,000 inj. MDV 50 ML VIAL ONE (10:24)
[2024-05-18] MEDS ORDERED: midazolam 1 mg/ML 2ml injection ONE ×2 (10:25→12:16)
[2024-05-18] MEDS ORDERED: fentaNYL/PF 50MCG/1 ML 2ML syringe ONE (10:25)
[2024-05-18] MEDS ORDERED: clindamycin-Cleocin 900mg/D5W 50 ML IV ONE (11:00)
[2024-05-18] MEDS ORDERED: diphenhydrAMINE 50 mg/ml inj ONE (12:23)
[2024-05-18] MEDS ORDERED: HYDROmorphone 1 mg/ml syringe ONE (12:25)
[2024-05-18] MEDS ORDERED: HYDROcodone/acetaminophen 5mg/325mg tablet PO PRN (14:30)
[2024-05-18] MEDS: normal saline 1,000 ML IV SCH (16:37)
[2024-05-18] MEDS: vancomycin/NS 1 GM ADD-VANTAGE 250 ML IV ONE (16:37)
[2024-05-18] MEDS: HYDROcodone/acetaminophen 10/325mg tab PO PRN (16:38)
[2024-05-18] MEDS ORDERED: CLIN300C54 PO (17:38)
== END 2024-05-18 18:30 | disposition home or self-care (01) ==
LOC: SSTAY O 09:04
PROVIDERS: ATTEND Internal Medicine Cardiovascular Disease
DX: I49.5 Sick sinus syndrome (principal); Z45.09 Encounter for adjustment and management of other cardiac device; Z79.01 Long term (current) use of anticoagulants; I25.10 Atherosclerotic heart disease of native coronary artery without angina pectoris; E78.5 Hyperlipidemia, unspecified; I11.0 Hypertensive heart disease with heart failure; I48.0 Paroxysmal atrial fibrillation; J44.9 Chronic obstructive pulmonary disease, unspecified; Z79.899 Other long term (current) drug therapy; I50.32 Chronic diastolic (congestive) heart failure; Z90.49 Acquired absence of other specified parts of digestive tract; I65.23 Occlusion and stenosis of bilateral carotid arteries; G47.30 Sleep apnea, unspecified; Z98.890 Other specified postprocedural states; I42.9 Cardiomyopathy, unspecified; Z82.3 Family history of stroke; Z82.49 Family history of ischemic heart disease and other diseases of the circulatory system; Z90.710 Acquired absence of both cervix and uterus; E66.3 Overweight; Z68.35 Body mass index [BMI] 35.0-35.9, adult
CPT/HCPCS: 33208; 33286; 36415; 71046; 80048; 85025; 85610; 85730; 93005; 99152; 99153; A4565; A4615; A6258; C1785; C1898; J0690; J1171; J1200; J2250; J3010; J3370; J3490; J7030; Z7610